=== PATIENT | male | born 1955 | race Caucasian/White ===

== ENCOUNTER 2020-12-28 18:05 | Inpatient (IN) | payer OTHER, MEDICARE ==
[~2020-12-28] VITALS: Ht 180.3 cm; Wt 95.5 kg
[~2020-12-28 18:05] MED LIST: ALBU90OI INH; AMLO5 PO; AMOX875 PO; ATOR10 PO; ATOR20 PO; AZIT250 PO; Aspir 8181 MG PO; BENZ100A PO; Cephalexin500 MG PO; FISH OIL 1,2001 EAC1 PO; GLUCOPHAGE1000 M1 PO; JARDIANCE25 MG PO; LISI20 PO; LISI5 PO; METF500 PO; MULTIPLE VITAM1 EACH PO; PROCODE120 PO; SIMV40 PO
[2020-12-28 18:39] LABS: BASOPHILS ABSOLUTE AUTO 0.02 K/mm3 (0.00-0.23); BASOPHILS PERCENT AUTO 0 % (0-2); EOSINOPHILS ABSOLUTE AUTO 0.02 K/mm3 (0.00-0.68); EOSINOPHILS PERCENT AUTO 0 % (0-6); Hematocrit 39.6 % (37.0-53.0); Hemoglobin 13.4 g/dL (13.5-17.5); IMMATURE GRAN ABSOLUTE AUTO 0.06 K/mm3 (0.00-0.10); IMMATURE GRAN PERCENT AUTO 1 % (0-1); LYMPHOCYTES PERCENT AUTO 16 % (21-46); MONOCYTES ABSOLUTE AUTO 0.64 K/mm3 (0.16-1.47); MONOCYTES PERCENT AUTO 8 % (4-13); Mean Corpuscular HGB 29.2 pg (26.0-34.0); Mean Corpuscular HGB Conc 33.8 g/dL (31.5-36.5); Mean Corpuscular Volume 86 fL (80-100); Mean Platelet Volume 9.6 fL (9.1-12.4); NEUTROPHILS PERCENT AUTO 75 % (41-73); Platelet Count 344 K/mm3 (150-400); RDW Coefficient Variation 11.6 % (11.7-14.2); RDW Standard Deviation 37.1 fL (35.1-46.3); Red Blood Cell Count 4.59 M/mm3 (4.30-5.90); White Blood Cell Count 8.54 K/mm3 (4.00-11.30)
[2020-12-28 19:11] LABS: Anion Gap 7 mmol/L (6-16); Blood Urea Nitrogen 33 mg/dL (8-24); Bun/Creatinine Ratio 28.7 (12.0-20.0); CO2, Blood 30 mmol/L (21-32); Calcium, Blood 8.8 mg/dL (8.5-10.1); Chloride, Blood 98 mmol/L (98-108); Creatinine, Blood 1.15 mg/dL (0.60-1.20); Glomerular Filtration Rate >60 (60-); Glucose, Blood 385 mg/dL (70-99); Magnesium, Blood 2.5 mg/dL (1.6-2.4); Potassium, Blood 4.4 mmol/L (3.5-5.5); Sodium, Blood 135 mmol/L (136-145); Troponin I <0.015 ng/mL (0.000-0.040)
[2020-12-28 20:34] LABS: PCO2 Arterial 41.2 mmHg (35-45); PO2 Arterial 66.3 mmHg (80-100); pH Blood Arterial 7.46 (7.35-7.45)
--- NOTE | 2020-12-29 01:00 | NUR ---
PT HERE VIA CHARISSE FROM ER. PT ABLE TO STAND AND PIVOT TO PCU BED. PT ON OXYMIZER 15L - SATS DROPPED WITH AMBULATION, BUT RECOVERED ONCE SETTLED INTO BED. SATS DROPPED TO 85%, THEN BACK TO 87-90%. LS CLEAR, INS WHEEZE BILATERAL BASES. CALL LIGHT WITHIN REACH. BED IN LOW POSITION.
[2020-12-29 04:28] LABS: BASOPHILS ABSOLUTE AUTO 0.01 K/mm3 (0.00-0.23); BASOPHILS PERCENT AUTO 0 % (0-2); EOSINOPHILS PERCENT AUTO 0 % (0-6); Hematocrit 38.8 % (37.0-53.0); Hemoglobin 12.9 g/dL (13.5-17.5); IMMATURE GRAN ABSOLUTE AUTO 0.03 K/mm3 (0.00-0.10); IMMATURE GRAN PERCENT AUTO 0 % (0-1); LYMPHOCYTES ABSOLUTE AUTO 0.83 K/mm3 (0.84-5.20); LYMPHOCYTES PERCENT AUTO 12 % (21-46); MONOCYTES ABSOLUTE AUTO 0.43 K/mm3 (0.16-1.47); MONOCYTES PERCENT AUTO 6 % (4-13); Mean Corpuscular HGB 29.3 pg (26.0-34.0); Mean Corpuscular HGB Conc 33.2 g/dL (31.5-36.5); Mean Corpuscular Volume 88 fL (80-100); Mean Platelet Volume 9.7 fL (9.1-12.4); NEUTROPHILS ABSOLUTE AUTO 5.94 K/mm3 (1.96-9.15); NEUTROPHILS PERCENT AUTO 82 % (41-73); Platelet Count 336 K/mm3 (150-400); RDW Coefficient Variation 11.7 % (11.7-14.2); RDW Standard Deviation 37.6 fL (35.1-46.3); Red Blood Cell Count 4.41 M/mm3 (4.30-5.90); White Blood Cell Count 7.24 K/mm3 (4.00-11.30)
[2020-12-29 04:50] LABS: Anion Gap 7 mmol/L (6-16); Blood Urea Nitrogen 36 mg/dL (8-24); Bun/Creatinine Ratio 32.4 (12.0-20.0); CO2, Blood 28 mmol/L (21-32); Calcium, Blood 8.3 mg/dL (8.5-10.1); Chloride, Blood 100 mmol/L (98-108); Creatinine, Blood 1.11 mg/dL (0.60-1.20); Glomerular Filtration Rate >60 (60-); Glucose, Blood 405 mg/dL (70-99); Potassium, Blood 4.6 mmol/L (3.5-5.5); Sodium, Blood 135 mmol/L (136-145)
--- NOTE | 2020-12-29 05:45 | NUR ---
SHIFT SUMMARY - NO ACUTE CHANGES SINCE ADMIT THIS AM. PT TOLERATED BEING PRONE FOR APPX 2 HOURS SINCE ADMIT AT 0100. SATS WNL, EXCEPT WITH EXERTION & WHEN UP TO BSC - SATS DROPPED TO MID 80'S - SATS RECOVERED WITH PRONING. PT REQUESTED FOOD LAST NOC - HE REPORTED HE HADN'T EATEN FOR 2 DAYS, DUE TO DECREASED APPETITE. PT ATE YOGURT, AND 1/4 OF A SANDWICH. TOLERATED PO FLUIDS, NO NAUSEA REPORTED. IV FLUIDS INFUSING WITHOUT COMPLICATIONS TO L AC IV SITE. FLUIDS AT BEDSIDE. CALL LIGHT WITHIN REACH. BED IN LOW POSITION.
--- NOTE | 2020-12-29 12:17 | NUR ---
HIGH CBG: SPOKE VERBALLY WITH DR. PAZ 10 UNITS FAST ACTING INSULIN X 1 NOW. WILL ADMINISTER NOW. NO FURTHER QUESTIONS OR CONCERNS.
--- NOTE | 2020-12-29 17:58 | NUR ---
END OF SHIFT SUMMARY: PATIENT DENIES CHEST PAIN, SR AT 67 PER HORSE RIDING COACH OR INSTRUCTOR, LUNGS WERE BILATERALLY CLEAR WITH VERY MINIMAL COARSENESS IN THE UPPER LOBES. LEFT AC IV FLUSHES, PATIENT USES THE CALL LIGHT APPPROPRIATELY. AIRVO LAST CHECK WAS 60L AT 61% O2 SPO2 WAS > 91, AT REST AND EVEN UP TO 100 AT TIMES, HOWEVER WITH EXERTION [place]F [place] [facility] [place], OR EATING, PATIENT DESATURATES DOWN TO LOW 80'S. PATIENT THIS MORNING WAS NOT TOLERATING THE OXIMIZER AND IS NOW ON AIRVO. PATIENT HAS BEEN HAVING INCREASED GLUCOSE LEVELS, 450 THIS AM LOW 400'S AND LASTLY AFTER A ONE TIME DOSE OF 10 WITH INCREASED SS 15 UNTIS (25 UNITS TOTAL) PATIENT CAME DOWN TO ~316, PROVIDER INCREASED LONG ACTING INSULIN. PATIENT REPOSITIONS SELF WELL AND WAS PRONING THROUGH THE NIGHT. PATIENT WAS EDUCATED ON HYPOGLYCEMIA SYMPTOMS AND WAS ABLE TO TEACH BACK. PATIENT HAD A VERY SMALL BM TODAY, BUT TODAY WAS THE FIRST DAY HE STARTED TO EAT.
[2020-12-30 03:43] LABS: Hematocrit 36.2 % (37.0-53.0); Hemoglobin 12.2 g/dL (13.5-17.5); Mean Corpuscular HGB 29.1 pg (26.0-34.0); Mean Corpuscular HGB Conc 33.7 g/dL (31.5-36.5); Mean Corpuscular Volume 86 fL (80-100); Mean Platelet Volume 9.6 fL (9.1-12.4); Platelet Count 379 K/mm3 (150-400); RDW Coefficient Variation 11.6 % (11.7-14.2); RDW Standard Deviation 36.4 fL (35.1-46.3); Red Blood Cell Count 4.19 M/mm3 (4.30-5.90); White Blood Cell Count 10.01 K/mm3 (4.00-11.30)
[2020-12-30 04:01] LABS: Alanine Aminotransfer (ALT/SGP 20 U/L (12-78); Albumin, Blood 2.3 g/dL (3.4-5.0); Albumin/Globulin Ratio 0.5 (0.8-1.8); Alk Phos 55 U/L (50-136); Anion Gap 5 mmol/L (6-16); Aspartate Aminotrans (AST/SGOT 14 U/L (12-37); Bilirubin, Total 0.5 mg/dL (0.1-1.0); Blood Urea Nitrogen 44 mg/dL (8-24); Bun/Creatinine Ratio 46.1 (12.0-20.0); CO2, Blood 28 mmol/L (21-32); Calcium, Blood 8.1 mg/dL (8.5-10.1); Chloride, Blood 104 mmol/L (98-108); Creatinine, Blood 0.96 mg/dL (0.60-1.20); Globulin, Blood 4.8 g/dL (2.2-4.0); Glomerular Filtration Rate >60 (60-); Glucose, Blood 234 mg/dL (70-99); Potassium, Blood 4.1 mmol/L (3.5-5.5); Sodium, Blood 137 mmol/L (136-145); Total Protein, Blood 7.1 g/dL (6.4-8.2)
--- NOTE | 2020-12-30 06:22 | NUR ---
SHIFT SUMMARY NO ACUTE CHANGES THIS SHIFT. PT ALERT AND ORIENTED X4. PLEASANT AND COOPERATIVE TO CARE. TELE READS 61 NSR. BP STABLE. O2 SATS OVER 89% ON AIRVO 55L 60% FIO2. TOLERATED PRONING THROUGHOUT MOST OF NIGHT, OTHERWISE SLEPT ON SIDES. PT LEFT IN BED WITH CALL ALARM AT SIDE. WILL CONTINUE TO MONITOR UNTIL REPORT GIVEN TO DAYSHIFT RN
--- NOTE | 2020-12-30 11:38 | NUR ---
TRANSFER SUMMARY: REPORT GIVEN TO MIQUEL CALERO RN, AT 11:25, PATIENT WAS TRANSFERRED TO ROOM 307 BED - 2 VIA WHEELCHAIR NONREBREATHER AT TURNED UP FACE SHIELD IN PLACE RECOMMENDED BY RT OWENS, WHICH WAS PRESENT DURING TRANSFER. PATIENTS MEDS AND CHART WERE WITH PATIENT'S BELONGINGS IN ROUTE TO THE ROOM.
--- NOTE | 2020-12-30 12:18 | NUR ---
PATIENT TRANSFERRED FROM PCU 12 TO 307 BED 2. TRANSFERRED WITH SBA FROM W/C TO BED. VSS THIS AM. BS 380, WILL MEDICATE PER EMAR. CURRENTLY ON AIRVO AT 55L WITH FIO2 OF 63%, 94%. SKIN INTACT. ORIENTED TO ROOM AND USE OF CALL LIGHT.
--- NOTE | 2020-12-31 04:54 | NUR ---
SHIFT SUMMARY A/OX4, PLEASANT AND COOPERATIVE WITH CARE. CURRENTLY ON AIRVO 55L AT 63% FIO2. ENCOURAGED PRONING T/O THE NIGHT. VSS, NO ACUTE CHANGES AT THIS TIME. BED IN LOWEST POSITION WITH CALL LIGHT IN REACH. WILL CONTINUE TO MONITOR AND REPORT TO ONCOMING RN.
[2020-12-31 05:20] LABS: Mean Corpuscular HGB 29.1 pg (26.0-34.0); Mean Corpuscular HGB Conc 33.3 g/dL (31.5-36.5); Mean Corpuscular Volume 87 fL (80-100); Mean Platelet Volume 9.7 fL (9.1-12.4); Platelet Count 395 K/mm3 (150-400); RDW Coefficient Variation 11.6 % (11.7-14.2); RDW Standard Deviation 37.4 fL (35.1-46.3); Red Blood Cell Count 4.12 M/mm3 (4.30-5.90); White Blood Cell Count 9.15 K/mm3 (4.00-11.30)
[2020-12-31 05:59] LABS: Alanine Aminotransfer (ALT/SGP 19 U/L (12-78); Albumin, Blood 2.3 g/dL (3.4-5.0); Albumin/Globulin Ratio 0.5 (0.8-1.8); Alk Phos 52 U/L (50-136); Anion Gap 7 mmol/L (6-16); Aspartate Aminotrans (AST/SGOT 12 U/L (12-37); Bilirubin, Total 0.5 mg/dL (0.1-1.0); Blood Urea Nitrogen 33 mg/dL (8-24); Bun/Creatinine Ratio 38.2 (12.0-20.0); CO2, Blood 26 mmol/L (21-32); Calcium, Blood 8.3 mg/dL (8.5-10.1); Chloride, Blood 104 mmol/L (98-108); Creatinine, Blood 0.86 mg/dL (0.60-1.20); Globulin, Blood 4.4 g/dL (2.2-4.0); Glomerular Filtration Rate >60 (60-); Glucose, Blood 258 mg/dL (70-99); Potassium, Blood 4.2 mmol/L (3.5-5.5); Sodium, Blood 137 mmol/L (136-145); Total Protein, Blood 6.7 g/dL (6.4-8.2)
--- NOTE | 2020-12-31 19:16 | NUR ---
SHIFT SUMMARY PT A/O X4 AND ADMITTED FOR COVID 19. CURRENTLY ON AIRVO AT 55 LITERS AND 78%. HE SEEMS TO SAT MOSTLY IN THE HIGH 80'S-LOW 90'S. IND/SBA AND ABLE TO MAKE HIS NEEDS KNOWN. VSS. WILL REPORT TO ONCOMING RN.
--- NOTE | 2021-01-01 05:29 | NUR ---
SHIFT SUMMARY A/O, ABLE TO MAKE NEEDS KNOWN. COOPERATIVE WITH CARE. ANSWERS QUESTIONS APPROPRIATELY. NO C/O PAIN/DISCOMFORT. APPEARED TO REST MUCH OF THE NIGHT. REMAINS ON AIRVO SPO2 >90% ON 55L/88% FIO2. NO ACUTE CHANGES NOTED OVERNIGHT. INDEPENDENT /c URINAL & BSC. BED IN LOWEST POSITION. CALL LIGHT AND BELONGINGS WITHIN REACH. CONTINUE WITH CURRENT PLAN OF CARE.
--- NOTE | 2021-01-01 19:20 | NUR ---
SHIFT SUMMARY NO ACUTE CHANGES THIS SHIFT. PT A/O X4 AND WORKED WITH PHYSICAL THERAPY. PT REMAINS ON AIRVO AND MAINTAINING O2 SATURATION >90%. ABLE TO AMBULATE IND/MAKE NEEDS KNOWN. VSS. WILL REPORT TO ONCOMING RN.
--- NOTE | 2021-01-02 19:35 | NUR ---
SHIFT SUMMARY NO ACUTE CHANGES THIS SHIFT. PT ABLE TO TOLERATE GETTING UP TO A RECLINER AND HAS MAINTAINED O2 SATS >90%. PT REMAINS ON AIRVO. VSS. WILL REPORT TO ONCOMING RN.
--- NOTE | 2021-01-03 04:58 | NUR ---
CASH MANAGEMENT SPECIALIST SUMMARY PT A/O X4, SLEPT WELL TONIGHT. CONTINUES TO BE ON 50L WITH 80% ON AIRVO SATTING IN THE HIGH 90'S. LUNG SOUNDS DIM THROUGHOUT. DENIES PAIN. ABLE TO MAKE NEEDS KNOWN. VITALS STABLE, NO ACUTE CHANGES. CALL LIGHT WITHIN REACH, WILL CONTINUE TO MONITOR.
--- NOTE | 2021-01-03 05:32 | NUR ---
HIGH BLOOD SUGAR 2100 PT HAS BLOOD SUGAR OF 396. HOPITALIST TRIPP NOTIFIED WHO OREDERED 3 EXTRA UNITS OF HUMALOG X1 ON TOP OF SCHEDULED HUMALOG DOSE. PT ALSO SCHEDULED 22 UNITS OF SEMGLEE.
--- NOTE | 2021-01-03 18:17 | NUR ---
SHIFT SUMMARY PATIENT DENIES PAIN AND NAUSEA. PATIENT REPORTS SOB WITH ACTIVITY. PATIENT DENIES SOB AT REST. PATIENT IS ON AIRVO AT 50L. PATIENT MAINTAINING SATURATIONS ABOVE 90%. PATIENT IS EATING AND DRINKING WELL. TELEMETRY IS DOSCONTINUED. PATIENT SBA TO RECLINER. PATIENT TOLERATED WELL. , ANNELISE, CALLED FOR UPDATE. WITH PATIENT PERMISSION, GAVE UPDATE. PATIENT IS PLEASANT AND COOPERATIVE WITH CARE.
--- NOTE | 2021-01-04 05:09 | NUR ---
WAREHOUSE SORTER SUMMARY PT A/O X4, PLEASANT AND COOPERATIVE. SLEPT WELL TONIGHT. USES URINAL INDEPENDENTLY. CONTINUES TO BE ON 45L VIA AIRVO WITH 50 FIO2 SATTINGI IN THE LWO TO MID 90'S. LUNG SOUNDS DIM THROUGHOUT. VSS, NO ACUTE CHANGES. CALL LIGHT WITHIN REACH, WILL CONTINUE TO MONITOR.
--- NOTE | 2021-01-05 02:40 | NUR ---
PT with covid 19 pneumonia on oxygen via airvo 45 l 45 % continues with elevated blood glucose. DR Franklin updated on HS BG 364 15 u semglee rx & increased from 30 units to 40 units BID. Alert. using urinal or BSC with assist. Special droplet contact iso for covid 19.
[2021-01-05 05:08] LABS: Base Excess Venous 4.7 mmol/L; Bicarbonate Venous 28.8 mmol/L (24.0-30.0); PCO2 Venous 34.4 mmHg (38-42); PO2 Venous 139 mmHg (38-42); pH Blood Venous 7.51 (7.34-7.37)
[2021-01-05 05:44] LABS: BASOPHILS ABSOLUTE AUTO 0.01 K/mm3 (0.00-0.23); BASOPHILS PERCENT AUTO 0 % (0-2); EOSINOPHILS ABSOLUTE AUTO 0.01 K/mm3 (0.00-0.68); EOSINOPHILS PERCENT AUTO 0 % (0-6); Hemoglobin 12.2 g/dL (13.5-17.5); IMMATURE GRAN ABSOLUTE AUTO 0.17 K/mm3 (0.00-0.10); IMMATURE GRAN PERCENT AUTO 2 % (0-1); LYMPHOCYTES ABSOLUTE AUTO 1.78 K/mm3 (0.84-5.20); LYMPHOCYTES PERCENT AUTO 17 % (21-46); MONOCYTES ABSOLUTE AUTO 0.67 K/mm3 (0.16-1.47); MONOCYTES PERCENT AUTO 7 % (4-13); Mean Corpuscular HGB 28.8 pg (26.0-34.0); Mean Corpuscular HGB Conc 33.9 g/dL (31.5-36.5); Mean Corpuscular Volume 85 fL (80-100); Mean Platelet Volume 9.5 fL (9.1-12.4); NEUTROPHILS ABSOLUTE AUTO 7.67 K/mm3 (1.96-9.15); NEUTROPHILS PERCENT AUTO 74 % (41-73); Platelet Count 498 K/mm3 (150-400); RDW Coefficient Variation 11.6 % (11.7-14.2); RDW Standard Deviation 35.3 fL (35.1-46.3); Red Blood Cell Count 4.24 M/mm3 (4.30-5.90); White Blood Cell Count 10.31 K/mm3 (4.00-11.30)
[2021-01-05 06:03] LABS: Alanine Aminotransfer (ALT/SGP 24 U/L (12-78); Albumin, Blood 2.3 g/dL (3.4-5.0); Albumin/Globulin Ratio 0.5 (0.8-1.8); Alk Phos 52 U/L (50-136); Anion Gap 5 mmol/L (6-16); Aspartate Aminotrans (AST/SGOT 8 U/L (12-37); Bilirubin, Total 0.4 mg/dL (0.1-1.0); Blood Urea Nitrogen 25 mg/dL (8-24); Bun/Creatinine Ratio 33.8 (12.0-20.0); CO2, Blood 27 mmol/L (21-32); Calcium, Blood 8.5 mg/dL (8.5-10.1); Chloride, Blood 99 mmol/L (98-108); Creatinine, Blood 0.74 mg/dL (0.60-1.20); Globulin, Blood 4.2 g/dL (2.2-4.0); Glomerular Filtration Rate >60 (60-); Glucose, Blood 300 mg/dL (70-99); Potassium, Blood 4.9 mmol/L (3.5-5.5); Sodium, Blood 131 mmol/L (136-145); Total Protein, Blood 6.5 g/dL (6.4-8.2)
--- NOTE | 2021-01-05 18:21 | NUR ---
SHIFT SUMMARY PATIENT IS ALERT AND ORIENTED X4. PATIENT IS ADMITTED FOR COVID PNEUMONIA ON OXYGEN VIA AIRVO THAT WE HAVE TITRATED DOWN TO 40 LITERS AT 40 PERCENT AND PATIENT HAS SATTED LOW 90S ON NEW TITRATION. PATIENT HAS BEEN USING URININAL AND BEDSIDE COMMODE WITH ONE PERSON ASSIST. DESATS WITH ACTIVITY AND MOVING AROUND TO CHAIR. PATIENT IS PLEASENT AND COOPERATIVE WITH CARE. NO COMPLAINTS OF NAUSEA, PAIN OR VOMITTING.
--- NOTE | 2021-01-06 17:16 | NUR ---
PATIENT IS ALERT AND ORIENTATED X4. PATIENT WAS ADMITTED FOR COVID PNUEMONIA. PATIENT HAS BEEN PLEASANT AND COOPERATIVE WITH CARE. PATIENT HAS BEEN TITRATED UP AND DOWN DURING SHIFT AND CURRENT AIRVO SETTINGS ARE 50L AND O2 IS 60 PERCENT. PATIENT DESATS WITH MODERATE ACTIVITY. PATIENT HAS BEEN USING URINAL AND BEDSIDE COMMODE WITH MINIMAL ASSIST. NO COMPLAINTS OF PAIN, NAUSEA, VOMITTING. WILL CONTINUE TO MONITOR UNTIL END OF SHIFT.
[2021-01-07 04:51] LABS: Base Excess Venous 8.5 mmol/L; Bicarbonate Venous 31.2 mmol/L (24.0-30.0); PCO2 Venous 45.7 mmHg (38-42); PO2 Venous 97.1 mmHg (38-42); pH Blood Venous 7.46 (7.34-7.37)
[2021-01-07 04:51] LABS: BASOPHILS ABSOLUTE AUTO 0.02 K/mm3 (0.00-0.23); BASOPHILS PERCENT AUTO 0 % (0-2); EOSINOPHILS PERCENT AUTO 0 % (0-6); IMMATURE GRAN ABSOLUTE AUTO 0.11 K/mm3 (0.00-0.10); IMMATURE GRAN PERCENT AUTO 1 % (0-1); LYMPHOCYTES ABSOLUTE AUTO 2.08 K/mm3 (0.84-5.20); LYMPHOCYTES PERCENT AUTO 18 % (21-46); MONOCYTES ABSOLUTE AUTO 0.69 K/mm3 (0.16-1.47); MONOCYTES PERCENT AUTO 6 % (4-13); Mean Corpuscular HGB 29.1 pg (26.0-34.0); Mean Corpuscular HGB Conc 34.2 g/dL (31.5-36.5); Mean Corpuscular Volume 85 fL (80-100); Mean Platelet Volume 8.9 fL (9.1-12.4); NEUTROPHILS ABSOLUTE AUTO 8.71 K/mm3 (1.96-9.15); NEUTROPHILS PERCENT AUTO 75 % (41-73); Platelet Count 445 K/mm3 (150-400); RDW Coefficient Variation 11.6 % (11.7-14.2); RDW Standard Deviation 36.1 fL (35.1-46.3); Red Blood Cell Count 4.46 M/mm3 (4.30-5.90); White Blood Cell Count 11.61 K/mm3 (4.00-11.30)
[2021-01-07 05:13] LABS: Anion Gap 2 mmol/L (6-16); Blood Urea Nitrogen 24 mg/dL (8-24); Bun/Creatinine Ratio 28.6 (12.0-20.0); CO2, Blood 32 mmol/L (21-32); Calcium, Blood 8.8 mg/dL (8.5-10.1); Chloride, Blood 99 mmol/L (98-108); Creatinine, Blood 0.84 mg/dL (0.60-1.20); Glomerular Filtration Rate >60 (60-); Glucose, Blood 146 mg/dL (70-99); Potassium, Blood 4.9 mmol/L (3.5-5.5); Sodium, Blood 133 mmol/L (136-145)
--- NOTE | 2021-01-07 06:36 | NUR ---
65 year old Male with Covid 19 continues hypoxic requiring airvo oxygen high flow heated to maintain sats greater than 90% . Sats monitored via bioxx.
--- NOTE | 2021-01-07 18:38 | NUR ---
Shift Summary, The patient is A/OX4 to person, place, time and event. The patient has been cooperative and pleasent. He has more energy today and stated he feels much better. The patient was titrated off oxygen and is on RA sp02>88 and he denies SOB or chest pain. The patient is independent in the room and uses the BSC. He has oxygen on standby incase he feels SOB. Currently the patient is sitting in his chair eating dinner.
--- NOTE | 2021-01-08 10:40 | NUR ---
patient reports dr jones and his is to be discharged, sats 95% on ra, LCA, denies nausea, pain, sob, or cp
--- NOTE | 2021-01-08 13:56 | NUR ---
patient off oxygen all day, sitting in chair no distress, 81% on ra, recovered to 90% on 5L, standing on 5L at 90%, ambulated on ra 84%, ambulated with 5L oxygen sats stayed 90% 1356 01/08/2021 Emily Welch
--- NOTE | 2021-01-08 14:01 | NUR ---
REPORTED TO DR PARKER HOME 02 EVALUATION, OKAY DISCHARGE HOME WITH 5L O2 NC
[2021-01-08] MEDS ORDERED: BASAGLAR K100 UNIT/6 SC (14:43)
[2021-01-08] MEDS ORDERED: HUMALOG KW100 UNIT/1 SC (14:44)
--- NOTE | 2021-01-08 16:02 | NUR ---
1544 [facility]RON TRANSPORTED OUTSIDE TO RIDE THAT IS WAITING, DISCHARGED HOME WITH 5L 02 THROUGH [facility], PATIENT STATED UNDERSTANDING OF DISCHARGE INSTRUCTIONS, LEFT AC REMOVED
--- NOTE | 2021-01-08 16:08 | NUR ---
PATIENT DISCHARGED HOME, STATED UNDERSTANDING OF INSTRUCTIONS AND FOLLOW UP NEEDS, PLESANT TO CARE, DENIES ANY COMPLAINTS OR CONCERNS
== END 2021-01-08 15:45 | disposition home health service (06) | DRG 177 ==
LOC: ER 18:05 → ERHOLD 19:41 → PCU 19:41 → MEDS 12-30 11:46
PROVIDERS: Internal Medicine; Student in an Organized Health Care Education/Training Program; ADMIT Internal Medicine
PROC: 5A09357 Assistance with Respiratory Ventilation, Less than 24 Consecutive Hours, Continuous Positive Airway Pressure (ICD-10-PCS; principal; 2020-12-28)
PROC: 8E0ZXY6 Isolation (ICD-10-PCS; 2020-12-28)
PROC: 3E0333Z Introduction of Anti-inflammatory into Peripheral Vein, Percutaneous Approach (ICD-10-PCS; 2020-12-28)
PROC: XW033E5 Introduction of Remdesivir Anti-infective into Peripheral Vein, Percutaneous Approach, New Technology Group 5 (ICD-10-PCS; 2020-12-28)
DX: U07.1 COVID-19 (principal); J12.82 Pneumonia due to coronavirus disease 2019; J96.01 Acute respiratory failure with hypoxia; E11.65 Type 2 diabetes mellitus with hyperglycemia; E86.0 Dehydration; I10 Essential (primary) hypertension; E78.5 Hyperlipidemia, unspecified; E66.9 Obesity, unspecified; Z68.32 Body mass index [BMI] 32.0-32.9, adult; Z79.82 Long term (current) use of aspirin; Z79.84 Long term (current) use of oral hypoglycemic drugs; Z79.899 Other long term (current) drug therapy; Z98.890 Other specified postprocedural states
CPT/HCPCS: 36415; 36600; 71045; 71260; 80048; 80053; 82803; 82947; 83735; 84145; 84484; 85025; 85027; 85379; 86140; 93005; 93010; 94762; 96374; 97110; 97116; 97161; 97530; 99285-25; A9270; J1100; J1650; J7030; J7050; Q9967

== ENCOUNTER 2024-03-03 13:41 | Emergency (ER) | payer OTHER, MEDICARE ==
[~2024-03-03] VITALS: Ht 180.3 cm; Wt 106.6 kg
[~2024-03-03 13:41] MED LIST changes: +BASAGLAR K100 UNIT/6 SC; +HUMALOG KW100 UNIT/1 SC
[2024-03-03 14:38] LABS: BASOPHILS ABSOLUTE AUTO 0.06 K/mm3 (0.00-0.23); BASOPHILS PERCENT AUTO 1 % (0-2); EOSINOPHILS ABSOLUTE AUTO 0.23 K/mm3 (0.00-0.68); EOSINOPHILS PERCENT AUTO 3 % (0-6); Hematocrit 37.6 % (37.0-53.0); Hemoglobin 12.4 g/dL (13.5-17.5); IMMATURE GRAN ABSOLUTE AUTO 0.02 K/mm3 (0.00-0.10); IMMATURE GRAN PERCENT AUTO 0 % (0-1); LYMPHOCYTES PERCENT AUTO 33 % (21-46); MONOCYTES ABSOLUTE AUTO 0.67 K/mm3 (0.16-1.47); MONOCYTES PERCENT AUTO 8 % (4-13); Mean Corpuscular HGB 29.5 pg (26.0-34.0); Mean Corpuscular Volume 90 fL (80-100); Mean Platelet Volume 9.9 fL (9.1-12.4); NEUTROPHILS ABSOLUTE AUTO 4.84 K/mm3 (1.96-9.15); NEUTROPHILS PERCENT AUTO 56 % (41-73); Platelet Count 204 K/mm3 (150-400); RDW Coefficient Variation 12.2 % (11.7-14.2); RDW Standard Deviation 39.8 fL (35.1-46.3); White Blood Cell Count 8.72 K/mm3 (4.00-11.30)
[2024-03-03 14:53] LABS: Albumin, Blood 3.8 g/dL (3.4-5.0); Albumin/Globulin Ratio 1.2 (0.8-1.8); Bilirubin, Total 0.6 mg/dL (0.1-1.0); Bun/Creatinine Ratio 19.8 (12.0-20.0); Calcium, Blood 8.7 mg/dL (8.5-10.1); Creatinine, Blood 1.16 mg/dL (0.60-1.20); Globulin, Blood 3.2 g/dL (2.2-4.0); Potassium, Blood 4.9 mmol/L (3.5-5.5)
[2024-03-03 15:33] VITALS: BP 145/91
[2024-03-03] MEDS ORDERED: OZEMPIC0.25 MG/02 SQ (15:35)
[2024-03-03] MEDS ORDERED: CEPH500 PO (15:55)
== END 2024-03-03 16:00 | disposition home or self-care (01) ==
LOC: ER 13:41
PROVIDERS: Emergency Medicine
DX: E11.621 Type 2 diabetes mellitus with foot ulcer (principal); L97.519 Non-pressure chronic ulcer of other part of right foot with unspecified severity; I10 Essential (primary) hypertension; E78.5 Hyperlipidemia, unspecified; Z79.85 Long-term (current) use of injectable non-insulin antidiabetic drugs; Z79.82 Long term (current) use of aspirin; Z79.4 Long term (current) use of insulin; Z79.84 Long term (current) use of oral hypoglycemic drugs; Z79.899 Other long term (current) drug therapy
CPT/HCPCS: 73630; 80053; 85025; 85651; 86140; 99283-25

== ENCOUNTER 2024-04-20 17:23 | Emergency (ER) | payer OTHER, MEDICARE ==
[~2024-04-20] VITALS: Ht 172.7 cm; Wt 72.6 kg
[~2024-04-20 17:23] MED LIST changes: +CEPH500 PO; +OZEMPIC0.25 MG/02 SQ
[2024-04-20 17:37] VITALS: BP 140/75
[2024-04-20] MEDS ORDERED: ONDA4ODT MM (21:04)
[2024-04-20] MEDS ORDERED: RX Prepack 2 Tabs Ondansetron ODT 4MG UD ONE (21:05)
== END 2024-04-20 21:32 | disposition home or self-care (01) ==
LOC: ER 17:23
DX: U07.1 COVID-19 (principal); I10 Essential (primary) hypertension; E11.9 Type 2 diabetes mellitus without complications; E78.00 Pure hypercholesterolemia, unspecified; Z86.16 Personal history of COVID-19; Z79.82 Long term (current) use of aspirin; Z79.85 Long-term (current) use of injectable non-insulin antidiabetic drugs; Z79.4 Long term (current) use of insulin; Z79.84 Long term (current) use of oral hypoglycemic drugs; Z79.899 Other long term (current) drug therapy
CPT/HCPCS: 99283; A9270